=== PATIENT | female | born 1990 | race Caucasian/White ===

== ENCOUNTER 2017-12-08 06:31 | Emergency (ER) | payer MEDICAID ==
--- NOTE | 2017-12-08 07:19 | ER Document Report ---
ED General - General Chief Complaint: Abdominal Pain Stated Complaint: ABOMINAL PAIN Time Seen by Provider: 12/08/17 06:44 Mode of Arrival: Ambulatory Information source: Patient Notes: 27-year-old female presents with complaints of difficulty urinating. Patient notes that she was diagnosed with the UTI 2 weeks ago was placed on Keflex but did not finish her prescription because she had gone on vacation. She notes symptoms have since worsened. Patient denies TRAVEL OUTSIDE OF THE [place] IN LAST 30 DAYS: No - HPI Onset: Last week Onset/Duration: Persistent Quality of pain: Pressure Severity: Mild Pain Level: 1 Associated symptoms: Other Exacerbated by: Other - Difficulty urinating Relieved by: Denies Similar symptoms previously: Yes - Treated for UTI 2 weeks ago Recently seen / treated by doctor: Yes - Related Data Allergies/Adverse Reactions: No Known Allergies Allergy (Verified 12/08/17 06:33) Past Medical History - Social History Smoking Status: Never Smoker Cigarette use (# per day): No Chew tobacco use (# tins/day): No Smoking Education Provided: No Family History: Reviewed & Not Pertinent Review of Systems - Review of Systems Notes: REVIEW OF SYSTEMS: CONSTITUTIONAL : Denies fever, chills, or sweats. Denies recent illness. EENT: Denies eye, ear, throat, or mouth pain or symptoms. Denies nasal or sinus congestion or discharge. Denies throat, tongue, or mouth swelling or difficulty swallowing. CARDIOVASCULAR: Denies chest pain. Denies palpitations or racing or irregular heart beat. Denies ankle edema. RESPIRATORY: Denies cough, cold, or chest congestion. Denies shortness of breath, difficulty breathing, or wheezing. GASTROINTESTINAL: Denies abdominal pain or distention. Denies nausea, vomiting , or diarrhea. Denies blood in vomitus, stools, or per rectum. Denies black, tarry stools. Denies constipation. GENITOURINARY: admits to difficulty urinating, pressure FEMALE GENITOURINARY: Denies vaginal bleeding, heavy or abnormal periods, irregular periods. Denies vaginal discharge or odor. MUSCULOSKELETAL: Denies back or neck pain or stiffness. Denies joint pain or swelling. SKIN: Denies rash, lesions or sores. HEMATOLOGIC : Denies easy bruising or bleeding. LYMPHATIC: Denies swollen, enlarged glands. NEUROLOGICAL: Denies confusion or altered mental status. Denies passing out or loss of consciousness. Denies dizziness or lightheadedness. Denies headache. Denies weakness or paralysis or loss of use of either side. Denies problems with gait or speech. Denies sensory loss, numbness, or tingling. Denies seizures. PSYCHIATRIC: Denies anxiety or stress. Denies depression, suicidal ideation, or homicidal ideation. ALL OTHER SYSTEMS REVIEWED AND NEGATIVE. PHYSICAL EXAMINATION: GENERAL: Well-appearing, well-nourished and in no acute distress. HEAD: Atraumatic, normocephalic. EYES: Pupils equal round and reactive to light, extraocular movements intact, conjunctiva are normal. ENT: Nares patent, oropharynx clear without exudates. Moist mucous membranes. NECK: Normal range of motion, supple without lymphadenopathy LUNGS: Breath sounds clear to auscultation bilaterally and equal. No wheezes rales or rhonchi. HEART: Regular rate and rhythm without murmurs ABDOMEN: Soft, nontender, nondistended abdomen. No guarding, no rebound. No masses appreciated. mild surapubic pressure Female : deferred Musculoskeletal: Normal range of motion, no pitting or edema. No cyanosis. NEUROLOGICAL: Cranial nerves grossly intact. Normal speech, normal gait. Normal sensory, motor exams PSYCH: Normal mood, normal affect. SKIN: Warm, Dry, normal turgor, no rashes or lesions noted. Dictation was performed using [employer] voice recognition software Physical Exam - Vital signs Vitals: Temp Pulse Resp BP Pulse Ox 98.2 F 82 14 114/64 98 12/08/17 06:37 12/08/17 06:37 12/08/17 06:37 12/08/17 06:37 12/08/17 06:37 Course - Re-evaluation Re-evalutation: 12/08/17 09:50 Large amount of hematuria is noted, I did send the patient for CT is I was unsure if there is underlying mass versus kidney stone, no such pathology is noted on the CT imaging, I will treat the patient with antibiotics for presumed infectious process that is not noted because of the blood After performing a Medical Screening Examination, I estimate there is LOW risk for ACUTE APPENDICITIS, BOWEL OBSTRUCTION, ACUTE CHOLECYSTITIS, PERFORATED DIVERTICULITIS, INCARCERATED HERNIA, PANCREATITIS, PELVIC INFLAMMATORY DISEASE, PERFORATED ULCER, ECTOPIC , or TUBO-OVARIAN ABSCESS, thus I consider the discharge disposition reasonable. Also, there is no evidence or peritonitis , sepsis, or toxicity. I have reevaluated this patient multiple times and no significant life threatening changes are noted. The patient and I have discussed the diagnosis and risks, and we agree with discharging home with close follow-up with the understanding that symptoms and presentations can change. We also discussed returning to the Emergency Department immediately if new or worsening symptoms occur. We have discussed the symptoms which are most concerning (e.g., bloody stool, fever, changing or worsening pain, vomiting) that necessitate immediate return. - Vital Signs Vital signs: Temp Pulse Resp BP Pulse Ox 98.2 F 82 14 114/64 98 12/08/17 06:37 12/08/17 06:37 12/08/17 06:37 12/08/17 06:37 12/08/17 06:37 - Laboratory Laboratory results interpreted by me: 12/08/17 07:23 Urine Protein 100 H Urine Blood LARGE H Urine Urobilinogen 2.0 H Urine Ascorbic Acid 40 H - Diagnostic Test Radiology reviewed: Image reviewed - CT renal stone study notes no acute abnormality, Reports reviewed Discharge - Discharge Clinical Impression: UTI (urinary tract infection) Qualifiers: Urinary tract infection type: acute cystitis Hematuria presence: with hematuria Qualified Code(s): N30.01 - Acute cystitis with hematuria Condition: Stable Disposition: HOME, SELF-CARE Instructions: Abdominal Pain ([facility]), Urinary Tract Infection ([facility]) Additional Instructions: Follow up with your physician tomorrow for further care or return to the ED IMMEDIATELY if symptoms worsen or new concerns occur. If you cannot afford to follow up with your primary care physician a list of low cost clinics have been provided at the end of your discharge papers as well. Prescriptions: Sulfamethoxazole/Trimethoprim [Bactrim Ds Tablet] 1 each PO BID #14 tablet
[2017-12-08 08:09] LABS: AMORPHOUS SEDIMENT,URINE TRACE /HPF; APPEARANCE,URINE CLOUDY; BILIRUBIN,URINE NEGATIVE (NEGATIVE); GLUCOSE, URINE NEGATIVE (NEGATIVE); KETONES,URINE NEGATIVE (NEGATIVE); LEUKOCYTE ESTERASE,URINE NEGATIVE (NEGATIVE); NITRITE,URINE NEGATIVE (NEGATIVE); PROTEIN,URINE 100 mg/dL (NEGATIVE); URINE SPECIFIC GRAVITY 1.023
[2017-12-08 08:10] LABS: COLOR,URINE BROWN
--- NOTE | 2017-12-08 09:22 | RADIOLOGY REPORT (SQ) ---
EXAM DESCRIPTION: CT LTD RENAL STONE PROTOCOL ON COMPLETED DATE/TIME: 12/08/2017 8:47 am REASON FOR STUDY: hematuria, pressure urination COMPARISON: None. TECHNIQUE: CT scan of the abdomen and pelvis performed without intravenous or oral contrast. Images reviewed with lung, soft tissue, and bone windows. Reconstructed coronal and sagittal MPR images revi ewed. All images stored on PACS. All CT scanners at this facility use dose modulation, iterative reconstruction, and/or weight based d osing when appropriate to reduce radiation dose to as low as reasonably achievable (ALARA). [facility]: Dose Right [facility]: CareDose [facility]: Dose Right [facility]: Teradose 4D [facility]: [employer] Technologies RADIATION DOSE: CT Rad equipment meets quality standard of care and radiation dose reduction techniq ues were employed. CTDIvol: 11.8 mGy. DLP: 662 mGy-cm.mGy. LIMITATIONS: None. FINDINGS: LOWER CHEST: Mild dependent changes in the lower lobes. NON-CONTRASTED LIVER, SPLEEN, ADRENALS: Evaluation limited by lack of IV contrast. No identified sign ificant masses. PANCREAS: No masses. No peripancreatic inflammatory changes. GALLBLADDER: No identified stones by CT criteria. No inflammatory changes to suggest cholecystitis. RIGHT KIDNEY AND URETER: No solid masses. No significant calcification. No hydronephrosis or hydroure ter. LEFT KIDNEY AND URETER: No solid masses. No significant calcification. No hydronephrosis or hydrouret er. AORTA AND RETROPERITONEUM: No aneurysm. No retroperitoneal masses or adenopathy. BOWEL AND PERITONEAL CAVITY: No obvious masses or inflammatory changes. No free fluid. APPENDIX: Normal. PELVIS, BLADDER, AND ABDOMINAL WALL:Bilateral tubal occlusion devices in uterus. Scattered calcifica tions are consistent with phleboliths. No mass or fluid. Bladder unremarkable. BONES: No significant findings. OTHER: No other significant finding. IMPRESSION: NO SIGNIFICANT OR ACUTE PROCESS IN THE ABDOMEN OR PELVIS. TECHNICAL DOCUMENTATION: JOB ID: [id number] Quality ID # [id number]: Final reports with documentation of one or more dose reduction techniques (e.g., Au tomated exposure control, adjustment of the mA and/or kV according to patient size, use of iterative reconstruction technique) 2010 [employer]- All Rights Reserved Reading location - IP/workstation name: [email or web address]
[2017-12-08 10:05] VITALS: BP 100/60
== END 2017-12-08 10:04 | disposition home or self-care (01) ==
LOC: ER 06:31
DX: N30.01 Acute cystitis with hematuria (principal); T36.1X6A Underdosing of cephalosporins and other beta-lactam antibiotics, initial encounter; Z91.128 Patient's intentional underdosing of medication regimen for other reason; Z91.14 Patient's other noncompliance with medication regimen
CPT/HCPCS: 76380; 81001; 81025; 87086; 87088; 87186; 99284

== ENCOUNTER 2018-01-01 15:13 | Emergency (ER) | payer MEDICAID ==
[2018-01-01 15:22] VITALS: BP 107/64
[2018-01-01] MEDS ORDERED: DIPH/PERTUSS(ACELL)/TETANUS VAC/PF 0.5 ML SYR (>=10YO) IM ONE (15:32)
--- NOTE | 2018-01-01 15:33 | ER Document Report ---
ED Medical Screen (RME) - General Chief Complaint: Foreign Body Stated Complaint: FOOT INJURY Mode of Arrival: Ambulatory Information source: Patient Notes: 27 y.o female presents to the ED after stepping on a needle with her left foot yesterday and finding the needle on the ground with the sharp end broken off. Pt reports that she tried getting the needle out but was unable to get it. Pt reports that her tetanus vaccination is not up to date. She denies any other medical issues. I have greeted and performed a rapid initial assessment of the patient. A comprehensive ED assessment and evaluation of the patient, analysis of test results, and completion of the medical decision making process will be conducted by additional ED providers. PHYSICAL EXAM: General: Alert, appears well. HEENT: Normocephalic. Atraumatic. Neck: Supple. Respiratory: CTAB Abdominal: No distension. Extremities: Moves all four extremities. Foreign body to the distal part of the soul of the LT foot. Some black marking and tenderness to palpation. Neurological: Normal cognition. AAOx4. Normal speech. Psychological: Normal affect. Normal Mood. TRAVEL OUTSIDE OF THE [place] IN LAST 30 DAYS: No - Related Data Allergies/Adverse Reactions: No Known Allergies Allergy (Verified 01/01/18 15:31) Past Medical History Renal/ Medical History: Denies: Hx Peritoneal Dialysis Physical Exam - Vital signs Vitals: Temp Pulse Resp BP Pulse Ox 98.6 F 95 16 107/64 97 01/01/18 15:20 01/01/18 15:20 01/01/18 15:20 01/01/18 15:20 01/01/18 15:20 Course - Vital Signs Vital signs: Temp Pulse Resp BP Pulse Ox 98.6 F 95 16 107/64 97 01/01/18 15:20 01/01/18 15:20 01/01/18 15:20 01/01/18 15:20 01/01/18 15:20 Doctor's Discharge - Discharge Clinical Impression: Foreign body in left foot Condition: Stable Disposition: HOME, SELF-CARE Additional Instructions: Rest, Compression, Elevation Use crutches as directed Keep the skin clean and wash with soap and water Triple antibiotic ointment Tylenol/ibuprofen as needed Epsom salt soaks F/u with your PCP in 3-5 days for a recheck Call orthopedics tomorrow morning and set up an appointment to see Dr. Monzon. He will be seeing you sometime tomorrow in [place]. You may have to call him at his [place] office* Return to the ED with any worsening symptoms and/or development of fever, headache, chest pain, palpitations, syncope, shortness of breath, trouble breathing, abdominal pain, n/v/d, muscle weakness/paralysis, numbness/tingling, swelling, redness, or other worsening symptoms that are concerning to you. Prescriptions: Cephalexin Monohydrate [Keflex 500 mg Capsule] 500 mg PO TID #30 capsule Referrals: NOEMY MONZON DO [ACTIVE STAFF] - Follow up tomorrow Scribe Documentation - Scribe Written by Bakari:: Bakari Peres 01/01/18 1533 acting as scribe for :: Fab
--- NOTE | 2018-01-01 15:59 | ER Document Report ---
HPI - HPI Pain Level: 4 Notes: Patient is a 27-year-old female with no significant past medical history who presents to the ED complaining of possible foreign body to her left plantar foot distally times 1 day. Patient states that she dropped a sewing needle and stepped on it and when she pulled it out she believes that the tip of it broke off inside of her foot. Patient states that she has had some pain since then to pressure in that area. She has not noticed any abscess or purulent discharge nor any red streaks. Denies any drug allergies. Patient's last tetanus was "when I was a kid." Denies any headache, fever, URI, sore throat, chest pain, palpitations, syncope, cough, shortness of breath, wheeze, dyspnea, abdominal pain, nausea/vomiting/diarrhea, urinary retention, dysuria, hematuria , numbness/tingling, muscle paralysis/weakness, or rash. - ROS Systems Reviewed and Negative: Yes All other systems reviewed and negative Past Medical History - General Information source: Patient - Social History Smoking Status: Current Every Day Smoker Chew tobacco use (# tins/day): No Frequency of alcohol use: Social Drug Abuse: None Family History: Reviewed & Not Pertinent Patient has suicidal ideation: No Patient has homicidal ideation: No Renal/ Medical History: Denies: Hx Peritoneal Dialysis Vertical Provider Document - CONSTITUTIONAL Agree With Documented VS: Yes Notes: PHYSICAL EXAMINATION: GENERAL: Well-appearing, well-nourished and in no acute distress. LUNGS: Breath sounds clear to auscultation bilaterally and equal. No wheezes rales or rhonchi. HEART: Regular rate and rhythm without murmurs, rubs, gallops. Musculoskeletal: Lt foot/ankle: + dark pinpoint area noted to where the puncture occurred. + tenderness to palp directly over that site. No erythema, streaks, fluctuance, abscess, or purulence. FROM to passive/active. Strength 5+ /5. N/V intact distal. No bony tenderness of the foot. Achilles intact. Extremities: No cyanosis, clubbing, or edema b/l. Peripheral pulses 2+. Capillary refill less than 3 seconds. NEUROLOGICAL: Normal speech, limping gait. Normal sensory, motor exams PSYCH: Normal mood, normal affect. SKIN: Warm, Dry, normal turgor, no rashes or lesions noted. - INFECTION CONTROL TRAVEL OUTSIDE OF THE [place] IN LAST 30 DAYS: No Course - Re-evaluation Re-evalutation: 01/01/18 16:[address] Sanon after reviewing the XR I measured the foreign body to be approx 13.7mm and appears somewhat deep. Consulted General Surgeon, Dr. Saenz. He is not comfortable with feet and to consult Ortho. Dr. Sanon also spoke with the Surgeon. I spoke with Dr. Monzon who will see the patient tomorrow in [place], she is to call to schedule an appointment in the morning. Tetanus and antibiotics with crutches is what he recommends at this time. Patient is an afebrile, well-hydrated, 27-year-old female who presents to the ED with a foreign body to her left foot. Vitals are acceptable without any significant tachycardia, tachypnea, or hypoxia. PE is otherwise unremarkable for any neurovascular compromise, obvious tendon/ligament rupture, obvious fracture/dislocation, septic joint. There is currently no signs of infection at this time. I am unable to palpate the foreign body as it is fairly deep. Dr. Monzon has agreed to see this patient tomorrow. I will place her on Keflex. Conservative measures otherwise for symptoms. Tetanus is updated today. Return to the ED with any worsening/concerning symptoms otherwise as reviewed in discharge. Patient is in agreement. - Vital Signs Vital signs: Temp Pulse Resp BP Pulse Ox 98.6 F 95 16 107/64 97 01/01/18 15:20 01/01/18 15:20 01/01/18 15:20 01/01/18 15:20 01/01/18 15:20 Discharge - Discharge Clinical Impression: Foreign body in left foot Qualifiers: Encounter type: initial encounter Qualified Code(s): S90.852A - Superficial foreign body, left foot, initial encounter Condition: Stable Disposition: HOME, SELF-CARE Additional Instructions: Rest, Compression, Elevation Use crutches as directed Keep the skin clean and wash with soap and water Triple antibiotic ointment Tylenol/ibuprofen as needed Epsom salt soaks F/u with your PCP in 3-5 days for a recheck Call orthopedics tomorrow morning and set up an appointment to see Dr. Monzon. He will be seeing you sometime tomorrow in [place]. You may have to call him at his [place] office* Return to the ED with any worsening symptoms and/or development of fever, headache, chest pain, palpitations, syncope, shortness of breath, trouble breathing, abdominal pain, n/v/d, muscle weakness/paralysis, numbness/tingling, swelling, redness, or other worsening symptoms that are concerning to you. Prescriptions: Cephalexin Monohydrate [Keflex 500 mg Capsule] 500 mg PO TID #30 capsule Referrals: NOEMY MONZON DO [ACTIVE STAFF] - Follow up tomorrow
--- NOTE | 2018-01-01 16:12 | RADIOLOGY REPORT (SQ) ---
EXAM DESCRIPTION: FOOT LEFT COMPLETE COMPLETED DATE/TIME: 01/01/2018 3:55 pm REASON FOR STUDY: eval for foreign body (needle) distal foot COMPARISON: None. NUMBER OF VIEWS: Three views. TECHNIQUE: AP, lateral and oblique radiographic images acquired of the left foot. LIMITATIONS: None. FINDINGS: MINERALIZATION: Normal. BONES: No acute fracture or dislocation. No worrisome bone lesions. JOINTS: No effusions. SOFT TISSUES: There is a portion of pin or sewing needle in the soft tissues of the foot near the 3rd metatarsophalangeal joint. This does not involve the bone. OTHER: No other significant finding. IMPRESSION: Metallic foreign body in the soft tissues. TECHNICAL DOCUMENTATION: JOB ID: [id number] [employer]- All Rights Reserved Reading location - IP/workstation name: [email or web address]
[2018-01-01] MEDS ORDERED: CEPHALEXIN 500 MG CAPSULE PO ONE (16:19)
[2018-01-01] MEDS ORDERED: HYDROCODONE/ACETAMINOPHEN 5-325 MG (6 TAB/ER DISP) PO PRN (16:22)
== END 2018-01-01 16:35 | disposition home or self-care (01) ==
LOC: ER 15:13
DX: S90.852A Superficial foreign body, left foot, initial encounter (principal); W27.3XXA Contact with needle (sewing), initial encounter; F17.200 Nicotine dependence, unspecified, uncomplicated
CPT/HCPCS: 90471; 90715; 99283

== ENCOUNTER 2018-01-03 09:37 | Day surgery (SDC) | payer MEDICAID ==
[~2018-01-03 09:37] MED LIST: CEFAZOLIN 2 GM/D5W RTU 2 GM/50 ML RTUPB IV PRN; FENTANYL CITRATE INJ/PF 100 MCG/2 ML AMPUL ONE; LIDOCAINE 2% INJ-PF (20 MG/ML) 10 ML AMPUL ONE
[2018-01-03] MEDS ORDERED: ALBUTEROL SULFATE 0.083% NEB 2.5 MG/3 ML AMPUL NEB ONE (10:13)
[2018-01-03] MEDS ORDERED: MIDAZOLAM 2 MG/2 ML INJ ONE (10:20)
[2018-01-03] MEDS ORDERED: PROPOFOL INJ 200 MG/20 ML VIAL IV ONE (10:20)
[2018-01-03] MEDS ORDERED: FENTANYL CITRATE INJ/PF 100 MCG/2 ML AMPUL IV PRN ×3 (11:59)
[2018-01-03] MEDS ORDERED: PROMETHAZINE HCL INJ 25 MG/1 ML VIAL IV PRN ×2 (11:59)
[2018-01-03] MEDS ORDERED: DIPHENHYDRAMINE HCL 50 MG/ML VIAL IV PRN (11:59)
[2018-01-03] MEDS ORDERED: OXYCODONE-ACETAMINOPHEN 5-325 MG TABLET PO PRN ×2 (11:59)
[2018-01-03] MEDS ORDERED: MORPHINE SULFATE 10 MG/ML INJ IV PRN (11:59)
[2018-01-03] MEDS ORDERED: ONDANSETRON HCL INJ/PF 4 MG/2 ML SDV IV PRN (11:59)
[2018-01-03] MEDS ORDERED: MEPERIDINE HCL/PF INJ 25 MG/1 ML DISP.SYRIN IV PRN (11:59)
[2018-01-03] MEDS ORDERED: KETAMINE HCL INJ 500 MG/10 ML VIAL ONE (12:04)
[2018-01-03] MEDS ORDERED: BUPIVACAINE HCL 0.5%-EPI 1:200000 INJ/PF 30 ML VIAL ONE (12:06)
--- NOTE | 2018-01-03 12:21 | Operative Report ---
Operative Report DATE OF SURGERY: 01/03/18 PREOPERATIVE DIAGNOSIS: foreign body left foot OPERATION: Removal of foreign body left foot SURGEON: JAC CONNER ANESTHESIA: LMAC TISSUE REMOVED OR ALTERED: Retrieve needle/foreign body to pathology ESTIMATED BLOOD LOSS: Normal PROCEDURE: With the patient supine on the operating table the left lower extremities prepped and draped in sterile fashion. The skin overlying the puncture site was infiltrated with a combination of Marcaine, Xylocaine, and epinephrine. A 15 blade is used to make a longitudinal opening. Under fluoroscopic guidance a hemostat is then used to retrieve the underlying needle which occurs uneventfully. The bleeding is controlled with direct pressure. A sterile compressive dressing was applied. The patient's return to the PACU_
[2018-01-03] MEDS ORDERED: ONDANSETRON 4 MG TAB.RAPDIS SL PRN (12:44)
[2018-01-03] MEDS ORDERED: HYDROCODONE/ACETAMINOPHEN 5-325 MG TABLET PO PRN (12:44)
[2018-01-03 14:17] VITALS: BP 95/62
--- NOTE | 2018-01-03 14:41 | RADIOLOGY REPORT (SQ) ---
EXAM DESCRIPTION: FOOT LEFT 2 VIEWS; NO CHG FLUORO COMPLETED DATE/TIME: 01/03/2018 2:14 pm REASON FOR STUDY: FOREIGN BODY S99.822A OTHER SPECIFIED INJURIES OF LEFT FOOT, INITIAL ENCO COMPARISON: Foot films 01/01/2018 FLUOROSCOPY TIME: 10 seconds 2 digital C-arm images saved to PACS. TECHNIQUE: Intra-operative images acquired during surgical procedure to evaluate progress. NUMBER OF IMAGES: 2 digital C-arm images LIMITATIONS: None. FINDINGS: 2 C-arm images are submitted. 1 image over the left toes demonstrates that the radiopaque foreign body has been removed. The 2nd digital image shows a pair of forceps holding the radiopaque foreign body. IMPRESSION: Intra procedural imaging and fluoro. COMMENT: Quality ID [id number]: Final reports for procedures using fluoroscopy that document radiation exp osure indices, or exposure time and number of fluorographic images (if radiation exposure indices are not available) Please consult full operative report of the attending physician for description of the procedure. TECHNICAL DOCUMENTATION: JOB ID: [id number] [employer]- All Rights Reserved Reading location - IP/workstation name: [email or web address] BEDS AT THE [facility]
--- NOTE | 2018-01-03 14:41 | RADIOLOGY REPORT (SQ) ---
EXAM DESCRIPTION: FOOT LEFT 2 VIEWS; NO CHG FLUORO COMPLETED DATE/TIME: 01/03/2018 2:14 pm REASON FOR STUDY: FOREIGN BODY S99.822A OTHER SPECIFIED INJURIES OF LEFT FOOT, INITIAL ENCO COMPARISON: Foot films 01/01/2018 FLUOROSCOPY TIME: 10 seconds 2 digital C-arm images saved to PACS. TECHNIQUE: Intra-operative images acquired during surgical procedure to evaluate progress. NUMBER OF IMAGES: 2 digital C-arm images LIMITATIONS: None. FINDINGS: 2 C-arm images are submitted. 1 image over the left toes demonstrates that the radiopaque foreign body has been removed. The 2nd digital image shows a pair of forceps holding the radiopaque foreign body. IMPRESSION: Intra procedural imaging and fluoro. COMMENT: Quality ID [id number]: Final reports for procedures using fluoroscopy that document radiation exp osure indices, or exposure time and number of fluorographic images (if radiation exposure indices are not available) Please consult full operative report of the attending physician for description of the procedure. TECHNICAL DOCUMENTATION: JOB ID: [id number] [employer]- All Rights Reserved Reading location - IP/workstation name: [email or web address]
== END 2018-01-03 14:26 | disposition home or self-care (01) ==
LOC: OROUT 09:37
PROVIDERS: ATTEND Orthopaedic Surgery
DX: S90.852A Superficial foreign body, left foot, initial encounter (principal); W22.8XXA Striking against or struck by other objects, initial encounter; Z68.31 Body mass index [BMI] 31.0-31.9, adult; Y92.69 Other specified industrial and construction area as the place of occurrence of the external cause; E66.3 Overweight; F17.210 Nicotine dependence, cigarettes, uncomplicated
CPT/HCPCS: 81025; 73620; 94640; 28192; J2250; J3490 ×3; J3010; J2704; J0690; 00400

== ENCOUNTER 2018-06-15 05:58 | Inpatient (IN) | payer MEDICAID ==
[2018-06-15] MEDS ORDERED: ALBUTEROL SULFATE 0.083% NEB 2.5 MG/3 ML AMPUL NEB ONE (06:33)
[2018-06-15] MEDS ORDERED: IPRATROPIUM/ALBUTEROL 0.5-2.5 MG/3 ML AMPUL NEB ONE (06:33)
[2018-06-15] MEDS ORDERED: METHYLPREDNISOLONE INJ 125 MG/2 ML SDV IV ONE (06:33)
[2018-06-15] MEDS ORDERED: NORMAL SALINE 1000 ML 1,000 ML IV ONE (06:39)
--- NOTE | 2018-06-15 06:39 | ER Document Report ---
ED General - General Chief Complaint: Breathing Difficulty Stated Complaint: COUGHING UP BLOOD Time Seen by Provider: 06/15/18 06:27 TRAVEL OUTSIDE OF THE [place] IN LAST 30 DAYS: No - HPI Notes: Patient is a 27-year-old female that presents to the emergency department for chief complaint of hemoptysis. Patient reports heavy cough and congestion for the last week. Today she started coughing up bright red blood. She states it is streaky and not large clots. She states she has been seen in the emergency room 2 times in the last 4 days because of her cough. she was started on azithromycin and has had the first 2 days of that medication. She denies any home albuterol treatments. She is a daily tobacco user but has not smoked in the last 5 days. She denies recent surgery, travel, estrogen use, or hospitalizations. She denies family history of DVT/PE. She denies any known TB exposure. Patient reports a substernal chest pain with associated palpitations. The pain is worse with deep inspiration, ambulation, and coughing. She has not taken any over-the- counter medicine for her pain. She denies any relieving factors to the pain. Past Medical History: Negative Past Surgical History: Uterine ablation Social History: Daily tobacco. Occasional alcohol. Denies drug use. Family History: Reviewed and noncontributory for presenting illness Allergies: Reviewed, see documented allergy list. REVIEW OF SYSTEMS: CONSTITUTIONAL : No fever No chills No diaphoresis No recent illness EENT: No vision changes No congestion No sore throat CARDIOVASCULAR: chest pain palpitations RESPIRATORY: shortness of breath cough No difficulty breathing GASTROINTESTINAL: No abdominal pain No nausea No vomiting No diarrhea GENITOURINARY: No dysuria No hematuria No difficulty urinating MUSCULOSKELETAL: No back pain No leg pain No arm pain SKIN: No rashes No lesions LYMPHATIC: No swollen, enlarged glands. NEUROLOGICAL: No lightheadedness No headache No weakness No paresthesias PSYCHIATRIC: No anxiety No depression PHYSICAL EXAMINATION: Vital signs reviewed, nursing noted reviewed. GENERAL: Well-appearing, well-nourished and in no acute distress. HEAD: Atraumatic, normocephalic. EYES: Eyes appear normal, extraocular movements intact, sclera anicteric, conjunctiva are normal. ENT: nares patent, oropharynx clear without exudates. Moist mucous membranes. NECK: Normal range of motion, supple without lymphadenopathy LUNGS: Bilateral wheezing and bibasilar rhonchi. No accessory muscle use or tachypnea. No respiratory distress HEART: Tachycardic and regular rhythm without murmurs ABDOMEN: Soft, nontender, normoactive bowel sounds. No rebound, guarding, or rigidity. No masses appreciated. EXTREMITIES: Nontender, good range of motion, no pitting or edema. NEUROLOGICAL: No focal neurological deficits. Moves all extremities spontaneously Motor and sensory grossly intact on exam. PSYCH: Normal mood, normal affect. SKIN: Warm, Dry, normal turgor, no rashes or lesions noted on exposed skin - Related Data Allergies/Adverse Reactions: No Known Allergies Allergy (Verified 01/01/18 15:31) Past Medical History - Social History Smoking Status: Current Every Day Smoker Family History: Reviewed & Not Pertinent - Past Medical History Cardiac Medical History: Denies: Hx Coronary Artery Disease, Hx Heart Attack, Hx Hypertension Pulmonary Medical History: Reports: Hx Pneumonia Denies: Hx Asthma, Hx Bronchitis, Hx COPD Neurological Medical History: Denies: Hx Cerebrovascular Accident, Hx Seizures Renal/ Medical History: Denies: Hx Peritoneal Dialysis Musculoskeletal Medical History: Denies Hx Arthritis - Immunizations Hx Diphtheria, Pertussis, Tetanus Vaccination: Yes Physical Exam - Vital signs Vitals: Temp Pulse Resp BP Pulse Ox 98.1 F 105 H 19 97/50 L 95 06/15/18 06:04 06/15/18 06:04 06/15/18 06:04 06/15/18 06:04 06/15/18 06:04 Course - Re-evaluation Re-evalutation: 06/15/18 06:38 Vitals reviewed. Nursing notes reviewed. Patient is in no acute respiratory distress. She will be given albuterol, DuoNeb, and Solu-Medrol for symptomatic management. 06/15/18 08:25 Patient reevaluated, she is still not in any respiratory distress. Her oxygen has now dropped to 88% on room air and she will be placed on 2 L nasal cannula for her hypoxia. Lab work shows no acute anemia or signs of infection. She has no electrolyte derangement. 06/15/18 08:[address] scan was resulted as groundglass opacification concerning for possible mycobacterial infection. Patient is complaining of hemoptysis and will be moved to reverse isolation until tuberculosis infection can be further interrogated. 06/15/18 08:[address] Junior, pulmonology,who does not recommend antibiotic treatment at this time. He recommends AFB and sputum cultures prior to treatment, these were ordered. Case was discussed with Dr. Murphy who is accepted admission. Laboratory 06/15/18 06/15/18 06/15/18 06:55 06:55 06:55 WBC 8.9 RBC 4.02 Hgb 12.9 Hct 35.1 L MCV 87 MCH 32.1 MCHC 36.8 H RDW 13.5 Plt Count 200 Seg Neutrophils % 57.3 Lymphocytes % 32.9 Monocytes % 8.8 Eosinophils % 0.7 Basophils % 0.3 Absolute Neutrophils 5.1 Absolute Lymphocytes 2.9 Absolute Monocytes 0.8 Absolute Eosinophils 0.1 Absolute Basophils 0.0 Sodium 142.5 Potassium 4.2 Chloride 107 Carbon Dioxide 26 Anion Gap 10 BUN 13 Creatinine 0.52 Est GFR ( Amer) > 60 Est GFR (Non-Af Amer) > 60 Glucose 111 H Calcium 9.4 Troponin I < 0.012 Chest/Abdomen CTA 06/15/18 06:32 IMPRESSION: 1. Limited study. No central pulmonary embolus detected. 2. Mild adenopathy and patchy right lung infiltrates with differential as described above. - Vital Signs Vital signs: Temp Pulse Resp BP Pulse Ox 98.1 F 105 H 19 97/50 L 95 06/15/18 06:04 06/15/18 06:04 06/15/18 06:04 06/15/18 06:04 06/15/18 06:04 - Laboratory Result Diagrams: 06/15/18 06:55 06/15/18 06:55 Laboratory results interpreted by me: 06/15/18 06/15/18 06:55 06:55 Hct 35.1 L MCHC 36.8 H Glucose 111 H - EKG Interpretation by Me Additional EKG results interpreted by me: 06/15/18 08:23 Interpreted by myself [id number]: Sinus tachycardia, rate 101, normal axis, no ectopy, borderline prolonged QT, QTC 483 Discharge - Discharge Clinical Impression: Hypoxia, Bronchiolitis, Cough Condition: Stable Disposition: ADMITTED INPATIENT Admitting Provider: Hospitalist Unit Admitted: Telemetry - Reverse Isolation room
[2018-06-15 07:11] LABS: ABSOLUTE EOSINOPHILS # (AUTO) 0.1 10^3/uL (0.0-0.6); ABSOLUTE LYMPHOCYTES (AUTO) 2.9 10^3/uL (0.5-4.7); ABSOLUTE MONOCYTES (AUTO) 0.8 10^3/uL (0.1-1.4); ABSOLUTE NEUT (AUTO) 5.1 10^3/uL (1.7-8.2); BASOPHILS % (AUTO) 0.3 % (0-2); EOSINOPHILS % (AUTO) 0.7 % (0-6); HEMATOCRIT 35.1 % (36.0-47.0); HEMOGLOBIN 12.9 g/dL (12.0-15.5); LYMPHOCYTES % (AUTO) 32.9 % (13-45); MEAN CORPUSCULAR HEMOGLOBIN 32.1 pg (27.0-33.4); MEAN CORPUSCULAR HGB CONC 36.8 g/dL (32.0-36.0); MEAN CORPUSCULAR VOLUME 87 fl (80-97); MONOCYTES % (AUTO) 8.8 % (3-13); PLATELET COUNT 200 10^3/uL (150-450); RED BLOOD COUNT 4.02 10^6/uL (3.72-5.28); RED CELL DISTRIBUTION WIDTH 13.5 % (11.5-14.0); SEGMENTED NEUTROPHILS % (AUTO) 57.3 % (42-78); TOTAL CELLS COUNTED % (AUTO) 100 %; WHITE BLOOD COUNT 8.9 10^3/uL (4.0-10.5)
[2018-06-15 07:22] LABS: ANION GAP 10 (5-19); BLOOD UREA NITROGEN 13 mg/dL (7-20); CALCIUM 9.4 mg/dL (8.4-10.2); CARBON DIOXIDE 26 mmol/L (22-30); CHLORIDE 107 mmol/L (98-107); GLUCOSE 111 mg/dL (75-110); POTASSIUM 4.2 mmol/L (3.6-5.0); SODIUM 142.5 mmol/L (137-145)
--- NOTE | 2018-06-15 08:39 | RADIOLOGY REPORT (SQ) ---
EXAM DESCRIPTION: CTA CHEST COMPLETED DATE/TIME: 06/15/2018 8:18 am REASON FOR STUDY: hemoptysis COMPARISON: None. TECHNIQUE: CT scan of the chest performed using helical scanning technique with dynamic intravenous contrast injection. Images reviewed with lung, soft tissue and bone windows. Reconstructed coronal and sagittal MPR images reviewed. Additional 3 dimensional post-processing performed to develop Maximal Intensity Projection images (PA P). All images stored on PACS. All CT scanners at this facility use dose modulation, iterative reconstruction, and/or weight based d osing when appropriate to reduce radiation dose to as low as reasonably achievable (ALARA). [facility]: Dose Right [facility]: CareDose [facility]: Dose Right [facility]: Teradose 4D [facility]: [employer] CONTRAST TYPE AND DOSE: contrast/concentration: Isovue 350.00 mg/ml; Total Contrast Delivered: 145.0 ml; Total Saline Delivered: 120.0 ml RENAL FUNCTION: GFR > 60. RADIATION DOSE: CT Rad equipment meets quality standard of care and radiation dose reduction techniq ues were employed. CTDIvol: 3.3 - 19.8 mGy. DLP: 1227 mGy-cm. . LIMITATIONS: Initial injection showed poor opacification of the pulmonary arteries. After confirmin g normal renal function, I authorized reinjection with contrast. Unfortunately, contrast bolus in th e pulmonary arteries is still limited. Central pulmonary arteries are assessable. Peripheral branch es are not well seen. FINDINGS: LUNGS AND PLEURA: Minimal patchy reticular and ground-glass opacities in the right upper l obe and right lower lobe. Consider infective bronchiolitis. Such etiologies may include viral, donovan al and mycobacterial infection. AORTA AND GREAT VESSELS: Limited assessment. No gross aneurysm or dissection. HEART: No pericardial effusion. No significant coronary artery calcifications. PULMONARY ARTERIES: Central pulmonary arteries are clear of thrombus. HILAR AND MEDIASTINAL STRUCTURES: Mild mediastinal and hilar adenopathy with nodes measuring up to 1. 4 cm in short axis. Persistent thymic tissue in anterior mediastinum. HARDWARE: None in the chest. UPPER ABDOMEN: No significant findings. Limited exam. THYROID AND OTHER SOFT TISSUES: No masses. No adenopathy. BONES: No acute or significant finding. 3D MIPS: Confirm above findings. OTHER: No other significant finding. IMPRESSION: 1. Limited study. No central pulmonary embolus detected. 2. Mild adenopathy and patchy right lung infiltrates with differential as described above. COMMENT: Quality ID # [id number]: Final reports with documentation of one or more dose reduction techniques (e.g., Automated exposure control, adjustment of the mA and/or kV according to patient size, use of iterative reconstruction technique) TECHNICAL DOCUMENTATION: JOB ID: [id number] [employer]- All Rights Reserved Reading location - IP/workstation name: [email or web address]
[2018-06-15] MEDS ORDERED: LEVALBUTEROL HCL NEB 1.25 MG/3 ML AMPUL NEB PRN (09:42)
[2018-06-15] MEDS ORDERED: ONDANSETRON HCL INJ/PF 4 MG/2 ML SDV IV PRN (09:42)
[2018-06-15] MEDS ORDERED: ACETAMINOPHEN 325 MG TABLET PO PRN (09:42)
--- NOTE | 2018-06-15 10:13 | PDOC H&P ---
History of Present Illness Admission Date/PCP: 06/15/18 09:29 Patient complains of: cough and hemoptysis History of Present Illness: GERARDO FREITAS is a 27 year old female with no travel history, history of bipolar disorder, anxiety, depression, came to the emergency room with complaints of cough and chest congestion for 1 week. Due to the patient she went to the ER 3 times last time Saturday over hospital where she was given 83 Z-He and was discharged and patient is continued to have problems decided to come to the emergency room here. Since yesterday she is complaining of coughing up bright colored blood. 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 She is given the history that 2 of her kids are sick prior to the car problems first. She said might have borderline pneumonia secondary to kid has a bronchitis. She is given the history of shortness of breath associated with chest pain and coughing. Initially she is coughing green colored sputum. Since yesterday was blood stained sputum complains of headaches no dizziness complains of nausea denies any vomiting diarrhea constipation. She never had this problem. In the emergency room sputum AFB was sent. Call was placed to Dr. Junior the utility appraiser's recommendation is to not to start antibiotics until the cultures are negative. Medical consult was called for admission. CT of the chest was done PE is ruled out. But the radiologist impression is infective bronchiolitis most likely viral, possible fungal and TB etiology. Past Medical History Cardiac Medical History: Denies: Coronary Artery Disease, Myocardial Infarction, Hypertension Pulmonary Medical History: Reports: Pneumonia Denies: Asthma, Bronchitis, Chronic Obstructive Pulmonary Disease (COPD) Neurological Medical History: Denies: Seizures Musculoskeltal Medical History: Denies: Arthritis Psychiatric Medical History: Reports: Bipolar Disorder, Depression, General Anxiety Disorder Hematology: Denies: Anemia Past Surgical History Past Surgical History: Reports: Tubal Ligation, Other - Tubes in the ears, adenoids removal. Uterus ambulation. Social History Smoking Status: Current Every Day Smoker Family History Family History: Reviewed & Not Pertinent Parental Family History Reviewed: Yes Children Family History Reviewed: Yes Sibling(s) Family History Reviewed.: Yes Medication/Allergy Home Medications: Cephalexin Monohydrate [Keflex 500 mg Capsule] 500 mg PO TID #30 capsule Hydrocodone/Acetaminophen [Hydrocodon-Acetaminophen 5-325] 1 each PO 01/02/18 Allergies/Adverse Reactions: No Known Allergies Allergy (Verified 01/01/18 15:31) Review of Systems Constitutional: PRESENT: headache(s) Eyes: PRESENT: visual disturbances Ears: ABSENT: hearing changes Cardiovascular: PRESENT: chest pain Respiratory: PRESENT: cough, sputum, other - Hemoptysis Gastrointestinal: PRESENT: nausea Musculoskeletal: PRESENT: back pain Neurological: ABSENT: abnormal gait, abnormal speech, confusion, dizziness, focal weakness, syncope Psychiatric: ABSENT: anxiety, depression, homidical ideation, suicidal ideation Physical Exam Vital Signs: Temp Pulse Resp BP Pulse Ox 98.1 F 105 H 20 112/70 94 06/15/18 06:04 06/15/18 06:04 06/15/18 08:28 06/15/18 08:28 06/15/18 08:28 General appearance: PRESENT: mild distress Head exam: PRESENT: atraumatic Eye exam: PRESENT: PERRLA Neck exam: ABSENT: carotid bruit, JVD, lymphadenopathy, thyromegaly Respiratory exam: PRESENT: tachypnea, wheezes, other - Bilateral extensive wheezing. Cardiovascular exam: PRESENT: tachycardia GI/Abdominal exam: PRESENT: normal bowel sounds, soft. ABSENT: distended, guarding, mass, organolmegaly, rebound, tenderness Extremities exam: PRESENT: full ROM. ABSENT: calf tenderness, clubbing, pedal edema Neurological exam: PRESENT: alert, awake, oriented to person, oriented to place , oriented to time, oriented to situation, CN II-XII grossly intact. ABSENT: motor sensory deficit Psychiatric exam: PRESENT: appropriate affect, normal mood. ABSENT: homicidal ideation, suicidal ideation Results Impressions: Chest/Abdomen CTA 06/15/18 06:32 IMPRESSION: 1. Limited study. No central pulmonary embolus detected. 2. Mild adenopathy and patchy right lung infiltrates with differential as described above. Assessment & Plan - Diagnosis (1) Bronchiolitis Is this a current diagnosis for this admission?: Yes Plan: 06/15/2018-patient is going to be admitted into the telemetry. As inpatient. Patient is going to be in isolation until we ruled out TB. Requested for AFB x3. PPD was placed in the ER. Consult was requested. Started on albuterol nebulizations Xopenex nebulizations. Placed on oxygen 2 L nasal cannula. Sputum cultures blood cultures were sent. Started on Tamiflu. Requested for influenza screening. Patient is going to be in reverse isolation until the TB is ruled out. (2) Hypoxia Is this a current diagnosis for this admission?: Yes Plan: 06/14/2018 pulse ox reading in the ER on room air is 88%. She was placed on 2 L nasal cannula for hypoxia. (3) Hemoptysis Is this a current diagnosis for this admission?: Yes Plan: 06/15/2018 hemoptysis may be secondary to bronchiolitis. To rule out TB. Sputum cultures were sent. Hemoglobin is 12.9 stable. (4) Smoker Is this a current diagnosis for this admission?: Yes Plan: 06/15/2018 patient is a chronic smoker smoking for 12 years. She smokes 1 pack/ day. I am going to put her on nicotine patch. (5) Bipolar 1 disorder, depressed Is this a current diagnosis for this admission?: Yes Plan: 06/15/2018-patient is given the history of the bipolar disorder. According to her she was started on Latuda 2 weeks ago but the family thinks she is getting the side effects of Latuda coughing and body aches. Be going to hold off her medications for now. - Time Time Spent: 30 to 50 Minutes Critical Time spent with patient: Less than 15 minutes Smoking Cessation Education: over 10 minutes Medications reviewed and adjusted accordingly: Yes Anticipated discharge: Home
[2018-06-15 10:54] LABS: ARTERIAL BLOOD BASE EXCESS 1.7 mmol/L; ARTERIAL BLOOD H2CO3 1.24 mmol/L (1.05-1.35); ARTERIAL BLOOD HCO3 26.2 mmol/L (20-24); ARTERIAL BLOOD O2 SATURATION 82.3 % (94-98); ARTERIAL BLOOD PCO2 41.1 mmHg (35-45); ARTERIAL BLOOD PH 7.42 (7.35-7.45); ARTERIAL BLOOD PO2 45.3 mmHg (80-100); ARTERIAL BLOOD TOTAL CO2 27.5 mmol/L (21-25)
[2018-06-15 10:55] LABS: ARTERIAL BLOOD FIO2 2L
[2018-06-15] MEDS ORDERED: GUAIFENESIN 600 MG TABLET.SA PO ONE (11:00)
[2018-06-15 11:05] LABS: APPEARANCE,URINE CLEAR; BILIRUBIN,URINE NEGATIVE (NEGATIVE); COLOR,URINE YELLOW; GLUCOSE, URINE NEGATIVE (NEGATIVE); KETONES,URINE 20 mg/dL (NEGATIVE); LEUKOCYTE ESTERASE,URINE NEGATIVE (NEGATIVE); NITRITE,URINE NEGATIVE (NEGATIVE); PROTEIN,URINE NEGATIVE (NEGATIVE); URINE SPECIFIC GRAVITY > 1.060; UROBILINOGEN,URINE NEGATIVE mg/dL (<2.0)
[2018-06-15 11:17] LABS: URINE AMPHETAMINES SCREEN NEGATIVE; URINE BARBITURATES SCREEN NEGATIVE; URINE BENZODIAZEPINES SCREEN NEGATIVE; URINE COCAINE SCREEN NEGATIVE; URINE MARIJUANA (THC) SCREEN UNCONFIRMED POSITIVE; URINE METHADONE SCREEN NEGATIVE; URINE PHENCYCLIDINE SCREEN NEGATIVE
[2018-06-15 11:17] LABS: A TYPE INFLUENZA AG NEGATIVE (NEGATIVE); B INFLUENZA AG NEGATIVE (NEGATIVE)
[2018-06-15] MEDS: ENOXAPARIN SODIUM INJ 40 MG/0.4 ML DISP.SYRIN SUBCUT SCH (11:27)
[2018-06-15] MEDS: NORMAL SALINE 1000 ML 1,000 ML IV PRN (11:27)
[2018-06-15] MEDS: OSELTAMIVIR PHOSPHATE 75 MG CAPSULE PO SCH ×2 (11:27→17:36)
[2018-06-15] MEDS: LORAZEPAM INJ 2 MG/1 ML VIAL IV PRN ×2 (12:16→19:57)
[2018-06-15] MEDS: DOCUSATE SODIUM 100 MG CAPSULE PO SCH (17:35)
[2018-06-15] MEDS: HYDROCODONE/ACETAMINOPHEN 5-325 MG TABLET PO PRN (17:39)
[2018-06-15] MEDS: NICOTINE 21 MG/24 HR PATCH.TD24 TD PRN (19:03)
[2018-06-15] MEDS: IPRATROPIUM/ALBUTEROL 0.5-2.5 MG/3 ML AMPUL NEB PRN (19:17)
--- NOTE | 2018-06-15 19:41 | PDOC CONSULTATION ---
Consultation Consult Date: 06/15/18 Attending physician:: JONATHON LEWIS Consult reason:: hemoptysis History of Present Illness Admission Date/PCP: 06/15/18 09:29 History of Present Illness: GERARDO FREITAS is a 27 year old female,27-year-old female presented to the [facility] she has been sick for the last 6 days and has 2 possible sick. She denies nausea vomiting diarrhea fever but admits to some chills she denies chest pain or edema. Baseline she denies shortness of breath or dyspnea on exertion her PPD was negative dates unknown. She denies any history of chronic lung disease as a child or adolescent. She admits to exposure to large amounts of passive smoke as a child as well as an adult. She has smoked a pack a day for 12 years vows not to smoke any any longer she has no significant occupational history to exposure to potential respiratory toxins. She has 1 cat and 1 dog no recent travel. She denies angina-like chest pain sleeps on 3 pillows rare PND rare nocturnal cough and no edema.. She admits to snoring restless sleep nocturia 2 x 2-3 times per night unrestful sleep and excessive daytime somnolence. Past Medical History Cardiac Medical History: Denies: Coronary Artery Disease, Myocardial Infarction, Hypertension Pulmonary Medical History: Reports: Pneumonia Denies: Asthma, Bronchitis, Chronic Obstructive Pulmonary Disease (COPD) Neurological Medical History: Denies: Multiple Sclerosis, Seizures Renal/ Medical History: Denies: Nephrolithiasis Malignancy Medical History: Reports: None GI Medical History: Reports: Crohn's Disease, Ulcerative Colitis Denies: Cirrhosis Musculoskeltal Medical History: Denies: Arthritis Skin Medical History: Reports: None Psychiatric Medical History: Reports: Bipolar Disorder, Depression, General Anxiety Disorder, Tobacco Dependency Hematology: Denies: Anemia Infectious Medical History: Denies: Hepatitis B, Hepatitis C Past Surgical History Past Surgical History: Reports: Tubal Ligation, Other - Tubes in the ears, adenoids removal. Uterus ambulation. Social History Information Source: Patient, Relative, [facility] Records Lives with: Family Smoking Status: Current Every Day Smoker Cigarettes Packs Per Day: 1 Number of Years Smokin Passive smoke exposure as: Both Hx Prescription Drug Abuse: No Do you have pets?: Yes Have you had any respiratory illnesses as a child?: No Have you been exposed to any sick contacts recently?: Yes Have you had any recent respiratory illnesses?: Yes Have you travelled outside of [place] in the past 12 months?: No Family History Family History: Hypertension, Malignancy Parental Family History Reviewed: Yes Children Family History Reviewed: Yes Sibling(s) Family History Reviewed.: Yes Medication/Allergy Home Medications: Divalproex Sodium [Depakote ER] 500 mg PO QHS 06/15/18 Allergies/Adverse Reactions: No Known Allergies Allergy (Verified 06/15/18 11:12) Review of Systems Constitutional: PRESENT: chills, fatigue, fever(s) Eyes: ABSENT: visual disturbances Ears: ABSENT: hearing changes Nose, Mouth, and Throat: ABSENT: headache(s), mouth pain Cardiovascular: PRESENT: dyspnea on exertion, orthropnea. ABSENT: palpitations Respiratory: PRESENT: cough, dyspnea, hemoptysis Gastrointestinal: ABSENT: abdominal pain, bloating, coffee ground emesis, diarrhea, heartburn, hematemesis, hematochezia, melena Genitourinary: ABSENT: dysuria, hematuria Musculoskeletal: ABSENT: deformity, joint swelling Integumentary: ABSENT: pruritus, rash Neurological: ABSENT: abnormal gait, abnormal movements, abnormal speech, focal weakness, frequent falls, lack of coordination, memory loss Psychiatric: ABSENT: hallucinations, homidical ideation, suicidal ideation Endocrine: ABSENT: cold intolerance, heat intolerance, polydipsia, polyuria Hematologic/Lymphatic: ABSENT: lymphadenopathy Allergic/Immunologic: ABSENT: seasonal rhinorrhea Physical Exam Vital Signs: Temp Pulse Resp BP Pulse Ox 98.1 F 105 H 20 111/78 94 06/15/18 06:04 06/15/18 06:04 06/15/18 10:01 06/15/18 10:01 06/15/18 10:01 General appearance: PRESENT: no acute distress, cooperative, disheveled, obese Head exam: PRESENT: atraumatic, normocephalic Eye exam: PRESENT: conjunctiva pale, EOMI. ABSENT: nystagmus, scleral icterus Mouth exam: PRESENT: dry mucosa, neck supple, tongue midline Neck exam: ABSENT: carotid bruit, JVD, lymphadenopathy, thyromegaly, tracheal deviation, tracheostomy Respiratory exam: PRESENT: crackles, decreased breath sounds, rhonchi, wheezes. ABSENT: retraction, stridor Cardiovascular exam: PRESENT: RRR, +S1, +S2 Pulses: PRESENT: normal radial pulses GI/Abdominal exam: PRESENT: soft. ABSENT: tenderness Extremities exam: ABSENT: calf tenderness, joint swelling, pedal edema Musculoskeletal exam: PRESENT: ambulatory. ABSENT: deformity, dislocation Neurological exam: PRESENT: alert, awake Psychiatric exam: PRESENT: appropriate affect Skin exam: PRESENT: dry, warm Results Laboratory Results: 06/15/18 06/15/18 10:22 10:34 Carbonic Acid 1.24 HCO3/H2CO3 Ratio 21:1 ABG pH 7.42 ABG pCO2 41.1 ABG pO2 45.3 L ABG HCO3 26.2 H ABG O2 Saturation 82.3 L ABG Base Excess 1.7 FiO2 2L Urine Color YELLOW Urine Appearance CLEAR Urine pH 5.0 Ur Specific [place] > 1.060 Urine Protein NEGATIVE Urine Glucose (UA) NEGATIVE Urine Ketones 20 H Urine Blood SMALL H Urine Nitrite NEGATIVE Ur Leukocyte Esterase NEGATIVE Urine WBC (Auto) 2 Urine RBC (Auto) 6 06/15/18 10:17 Sputum Nocardia Susceptibility - Final Not Reportable 06/15/18 10:17 Sputum Nocardia Susceptibility - Final Not Reportable 06/15/18 10:17 Sputum Nocardia Susceptibility - Final Not Reportable 06/15/18 10:17 Sputum Nocardia Susceptibility - Final Not Reportable 06/15/18 10:17 Sputum Nocardia Susceptibility - Final Not Reportable 06/15/18 10:17 Sputum Nocardia Susceptibility - Final Not Reportable 06/15/18 10:17 Sputum Microbiology Comment - Final Not Reportable 06/15/18 10:45 CK-MB (CK-2) 0.63 Impressions: Chest/Abdomen CTA 06/15/18 06:32 IMPRESSION: 1. Limited study. No central pulmonary embolus detected. 2. Mild adenopathy and patchy right lung infiltrates with differential as described above. Assessment & Plan - Diagnosis (1) Bipolar 1 disorder, depressed Is this a current diagnosis for this admission?: Yes Plan: Continue current therapy (2) Hemoptysis Is this a current diagnosis for this admission?: Yes Plan: agree with caution putting patient in respiratory isolation nonetheless she is at very low risk for having tuberculosis she has pre-existing illness for 5 days of cough which resulted in coughing when she finally coughed up some blood she has 2 sick individuals at home we will check serial sputum's every morning for 3 days for AFB and treat her as if she has a community-acquired pneumonia (3) Smoker Is this a current diagnosis for this admission?: Yes Plan: Transdermal nicotine as you have done
[2018-06-15] MEDS: ZOLPIDEM TARTRATE 5 MG TABLET PO PRN (21:42)
[2018-06-15] MEDS: DIVALPROEX SODIUM 500 MG TAB.SR.24H PO SCH (21:42)
[2018-06-15] MEDS: FAMOTIDINE INJ/PF 20 MG/2 ML SDV IV SCH (21:43)
[2018-06-16] MEDS: LORAZEPAM INJ 2 MG/1 ML VIAL IV PRN ×3 (02:48→22:13)
[2018-06-16 05:58] LABS: ABSOLUTE LYMPHOCYTES (AUTO) 3.7 10^3/uL (0.5-4.7); ABSOLUTE MONOCYTES (AUTO) 0.8 10^3/uL (0.1-1.4); ABSOLUTE NEUT (AUTO) 5.4 10^3/uL (1.7-8.2); BASOPHILS % (AUTO) 0.3 % (0-2); EOSINOPHILS % (AUTO) 0.2 % (0-6); HEMATOCRIT 32.1 % (36.0-47.0); HEMOGLOBIN 11.5 g/dL (12.0-15.5); LYMPHOCYTES % (AUTO) 37.2 % (13-45); MEAN CORPUSCULAR HGB CONC 35.9 g/dL (32.0-36.0); MEAN CORPUSCULAR VOLUME 89 fl (80-97); MONOCYTES % (AUTO) 8.2 % (3-13); PLATELET COUNT 179 10^3/uL (150-450); RED BLOOD COUNT 3.61 10^6/uL (3.72-5.28); RED CELL DISTRIBUTION WIDTH 13.1 % (11.5-14.0); SEGMENTED NEUTROPHILS % (AUTO) 54.1 % (42-78); TOTAL CELLS COUNTED % (AUTO) 100 %
[2018-06-16 06:18] LABS: ANION GAP 9 (5-19); BLOOD UREA NITROGEN 10 mg/dL (7-20); CARBON DIOXIDE 24 mmol/L (22-30); CHLORIDE 108 mmol/L (98-107); CHOLESTEROL 131.83 mg/dL (0-200); GLUCOSE 101 mg/dL (75-110); POTASSIUM 3.5 mmol/L (3.6-5.0); SODIUM 141.2 mmol/L (137-145); TRIGLYCERIDES 56 mg/dL (<150)
[2018-06-16 06:29] LABS: DIRECT LDL 99 mg/dL (<100)
[2018-06-16] MEDS: HYDROCODONE/ACETAMINOPHEN 5-325 MG TABLET PO PRN (07:59)
--- NOTE | 2018-06-16 08:16 | PDOC PROGRESS REPORT ---
Subjective Progress Note for:: 06/16/18 Subjective:: 27-year-old female admitted for viral pneumonitis/questionable TB. No complaints except for anxiety. Comfortably in the bed. Afebrile. Vital signs today temperature is 98.1 blood pressure is 124/73. Pulmonary saw the patient and appreciate their input. I am going to follow Dr. Junior's recommendations. Reason For Visit: HYPOXIA BRONCHIOLITIS Physical Exam Vital Signs: Temp Pulse Resp BP Pulse Ox 98.1 F 85 16 124/73 96 06/15/18 23:26 06/16/18 07:00 06/15/18 23:26 06/15/18 23:26 06/16/18 03:47 Pulse Oximeter Continuous Start: 06/15/18 19: 25 Freq: RTQ4 Status: Active Document 06/16/18 03:47 [facility] (Rec: 06/16/18 03:48 [facility] [id number]) Pulse Oximetry Assessment Oxygen Saturation (92-100) 96 Oxygen Flow Rate (L/min) 2 Oxygen Delivery Method Nasal Cannula Fraction of Inspired Oxygen (FIO2) 28 Equipment Usage Equipment in Use Continuous SpO2 Machine # 11 Intake & Output 06/15/18 06/16/18 06/17/18 06:59 06:59 06:59 Intake Total 237 Balance 237 Weight 97.6 kg General appearance: PRESENT: no acute distress Head exam: PRESENT: atraumatic Eye exam: PRESENT: PERRLA Mouth exam: PRESENT: moist Neck exam: ABSENT: carotid bruit, JVD, lymphadenopathy, thyromegaly Respiratory exam: PRESENT: wheezes. ABSENT: rales, rhonchi Cardiovascular exam: PRESENT: RRR. ABSENT: diastolic murmur, rubs, systolic murmur GI/Abdominal exam: PRESENT: normal bowel sounds, soft. ABSENT: distended, guarding, mass, organolmegaly, rebound, tenderness Neurological exam: PRESENT: alert, awake, oriented to person, oriented to place , oriented to time, oriented to situation, CN II-XII grossly intact. ABSENT: motor sensory deficit Psychiatric exam: PRESENT: appropriate affect, normal mood. ABSENT: homicidal ideation, suicidal ideation Results Laboratory Results: 06/16/18 04:43 06/16/18 04:43 06/15/18 06/15/18 06/16/18 10:22 10:34 04:43 WBC 10.0 RBC 3.61 L Hgb 11.5 L Hct 32.1 L MCV 89 MCH 32.0 MCHC 35.9 RDW 13.1 Plt Count 179 Seg Neutrophils % 54.1 Lymphocytes % 37.2 Monocytes % 8.2 Eosinophils % 0.2 Basophils % 0.3 Absolute Neutrophils 5.4 Absolute Lymphocytes 3.7 Absolute Monocytes 0.8 Absolute Eosinophils 0.0 Absolute Basophils 0.0 Carbonic Acid 1.24 HCO3/H2CO3 Ratio 21:1 ABG pH 7.42 ABG pCO2 41.1 ABG pO2 45.3 L ABG HCO3 26.2 H ABG O2 Saturation 82.3 L ABG Base Excess 1.7 FiO2 2L Sodium Potassium Chloride Carbon Dioxide Anion Gap BUN Creatinine Est GFR ( Amer) Est GFR (Non-Af Amer) Glucose Calcium Magnesium Triglycerides Cholesterol LDL Cholesterol Direct VLDL Cholesterol HDL Cholesterol TSH Urine Color YELLOW Urine Appearance CLEAR Urine pH 5.0 Ur Specific [place] > 1.060 Urine Protein NEGATIVE Urine Glucose (UA) NEGATIVE Urine Ketones 20 H Urine Blood SMALL H Urine Nitrite NEGATIVE Ur Leukocyte Esterase NEGATIVE Urine WBC (Auto) 2 Urine RBC (Auto) 6 06/16/18 06/16/18 04:43 04:43 WBC RBC Hgb Hct MCV MCH MCHC RDW Plt Count Seg Neutrophils % Lymphocytes % Monocytes % Eosinophils % Basophils % Absolute Neutrophils Absolute Lymphocytes Absolute Monocytes Absolute Eosinophils Absolute Basophils Carbonic Acid HCO3/H2CO3 Ratio ABG pH ABG pCO2 ABG pO2 ABG HCO3 ABG O2 Saturation ABG Base Excess FiO2 Sodium 141.2 Potassium 3.5 L Chloride 108 H Carbon Dioxide 24 Anion Gap 9 BUN 10 Creatinine 0.51 L Est GFR ( Amer) > 60 Est GFR (Non-Af Amer) > 60 Glucose 101 Calcium 9.0 Magnesium 1.8 Triglycerides 56 Cholesterol 131.83 LDL Cholesterol Direct 99 VLDL Cholesterol 11.0 HDL Cholesterol 33 L TSH 3.56 Urine Color Urine Appearance Urine pH Ur Specific [place] Urine Protein Urine Glucose (UA) Urine Ketones Urine Blood Urine Nitrite Ur Leukocyte Esterase Urine WBC (Auto) Urine RBC (Auto) 06/16/18 04:40 Sputum Microbiology Comment - Final Not Reportable 06/16/18 04:40 Sputum Nocardia Susceptibility - Final Not Reportable 06/16/18 04:40 Sputum Nocardia Susceptibility - Final PRODUCT ANALYST 06/16/18 04:40 Sputum Nocardia Susceptibility - Final Not Reportable 06/16/18 04:40 Sputum Nocardia Susceptibility - Final Not Reportable 06/16/18 04:40 Sputum Nocardia Susceptibility - Final Not Reportable 06/16/18 04:40 Sputum Nocardia Susceptibility - Final Not Reportable 06/16/18 04:40 Sputum Nocardia Susceptibility - Final Not Reportable 06/16/18 04:40 Sputum Nocardia Susceptibility - Final Not Reportable 06/16/18 04:40 Sputum Nocardia Susceptibility - Final Not Reportable 06/16/18 04:40 Sputum Nocardia Susceptibility - Final Not Reportable 06/16/18 04:40 Sputum Microbiology Comment - Final Not Reportable 06/15/18 10:17 Sputum Nocardia Susceptibility - Final Not Reportable 06/15/18 10:17 Sputum Nocardia Susceptibility - Final Not Reportable 06/15/18 10:17 Sputum Nocardia Susceptibility - Final Not Reportable 06/15/18 10:17 Sputum Nocardia Susceptibility - Final Not Reportable 06/15/18 10:17 Sputum Nocardia Susceptibility - Final Not Reportable 06/15/18 10:17 Sputum Nocardia Susceptibility - Final Not Reportable 06/15/18 10:17 Sputum Microbiology Comment - Final Not Reportable 06/15/18 06/15/18 06/15/18 10:45 15:50 21:50 CK-MB (CK-2) 0.63 0.59 0.68 Impressions: Chest/Abdomen CTA 06/15/18 06:32 IMPRESSION: 1. Limited study. No central pulmonary embolus detected. 2. Mild adenopathy and patchy right lung infiltrates with differential as described above. Assessment & Plan - Diagnosis (1) Bronchiolitis Is this a current diagnosis for this admission?: Yes Plan: 06/15/2018-patient is going to be admitted into the telemetry. As inpatient. Patient is going to be in isolation until we ruled out TB. Requested for AFB x3. PPD was placed in the ER. Consult was requested. Started on albuterol nebulizations Xopenex nebulizations. Placed on oxygen 2 L nasal cannula. Sputum cultures blood cultures were sent. Started on Tamiflu. Requested for influenza screening. Patient is going to be in reverse isolation until the TB is ruled out. 06/16/2018-plan for today is to start her on IV Rocephin 1 g daily. QuantiFERON test was requested yesterday. AFBs are pending. Blood cultures are pending. Influenza A and B-. Pulse ox is 95% on room air. Going to follow her on regular basis. (2) Hypoxia Is this a current diagnosis for this admission?: Yes Plan: 06/15/2018 pulse ox reading in the ER on room air is 88%. She was placed on 2 L nasal cannula for hypoxia. 06/16/2018-pulse ox on 2 L today is 95%. At the time of admission the ER pulse ox is 88% on room air. No episodes of hypoxia while in the floor.. We will continue the present management. (3) Hemoptysis Is this a current diagnosis for this admission?: Yes Plan: 06/15/2018 hemoptysis may be secondary to bronchiolitis. To rule out TB. Sputum cultures were sent. Hemoglobin is 12.9 stable. 06/16/2018 patient given the history of hemoptysis in the ER. If these are pending to rule out TB. TB unlikely in my opinion. (4) Smoker Is this a current diagnosis for this admission?: Yes Plan: 06/15/2018 patient is a chronic smoker smoking for 12 years. She smokes 1 pack/ day. I am going to put her on nicotine patch. 06/16/2018 patient is a chronic smoker patient was placed on nicotine patch. (5) Bipolar 1 disorder, depressed Is this a current diagnosis for this admission?: Yes Plan: 06/15/2018-patient is given the history of the bipolar disorder. According to her she was started on Latuda 2 weeks ago but the family thinks she is getting the side effects of Latuda coughing and body aches. Be going to hold off her medications for now. 07/17/2017 patient has history of bipolar disorder and anxiety she is getting Ativan 1 mg IV every 6 as needed for anxiety. - Time Time Spent with patient: Less than 15 minutes Smoking Cessation Education: 3 to 10 minutes Medications reviewed and adjusted accordingly: Yes Anticipated discharge: Home
[2018-06-16] MEDS: IPRATROPIUM/ALBUTEROL 0.5-2.5 MG/3 ML AMPUL NEB PRN ×2 (08:22→20:11)
[2018-06-16] MEDS ORDERED: CEFTRIAXONE INJ 1000 MG VIAL IV SCH (10:00)
[2018-06-16] MEDS: ENOXAPARIN SODIUM INJ 40 MG/0.4 ML DISP.SYRIN SUBCUT SCH (10:31)
[2018-06-16] MEDS: FAMOTIDINE INJ/PF 20 MG/2 ML SDV IV SCH ×2 (10:31→22:14)
[2018-06-16] MEDS: DOCUSATE SODIUM 100 MG CAPSULE PO SCH ×2 (10:31→17:33)
[2018-06-16] MEDS: CEFTRIAXONE SODIUM 1,000 MG in DEXTROSE 5%-WATER 50 ML IV SCH (10:32)
[2018-06-16] MEDS: OSELTAMIVIR PHOSPHATE 75 MG CAPSULE PO SCH ×2 (10:34→17:40)
[2018-06-16] MEDS ORDERED: TUBERCULIN,PURIF.PROT.DERIV. 5 TU/0.1 ML TEST 1 ML VIAL ID ONE (14:00)
[2018-06-16] MEDS: DIVALPROEX SODIUM 500 MG TAB.SR.24H PO SCH (22:13)
[2018-06-16] MEDS: ZOLPIDEM TARTRATE 5 MG TABLET PO PRN (22:14)
[2018-06-17] MEDS: HYDROCODONE/ACETAMINOPHEN 5-325 MG TABLET PO PRN ×2 (00:33→17:18)
[2018-06-17 05:22] LABS: ABSOLUTE EOSINOPHILS # (AUTO) 0.1 10^3/uL (0.0-0.6); ABSOLUTE LYMPHOCYTES (AUTO) 3.5 10^3/uL (0.5-4.7); ABSOLUTE MONOCYTES (AUTO) 0.5 10^3/uL (0.1-1.4); ABSOLUTE NEUT (AUTO) 2.8 10^3/uL (1.7-8.2); BASOPHILS % (AUTO) 0.4 % (0-2); EOSINOPHILS % (AUTO) 1.3 % (0-6); HEMATOCRIT 30.8 % (36.0-47.0); HEMOGLOBIN 11.1 g/dL (12.0-15.5); LYMPHOCYTES % (AUTO) 51.5 % (13-45); MEAN CORPUSCULAR HEMOGLOBIN 31.9 pg (27.0-33.4); MEAN CORPUSCULAR VOLUME 89 fl (80-97); MONOCYTES % (AUTO) 6.7 % (3-13); PLATELET COUNT 190 10^3/uL (150-450); RED BLOOD COUNT 3.49 10^6/uL (3.72-5.28); RED CELL DISTRIBUTION WIDTH 13.1 % (11.5-14.0); SEGMENTED NEUTROPHILS % (AUTO) 40.1 % (42-78); TOTAL CELLS COUNTED % (AUTO) 100 %; WHITE BLOOD COUNT 6.9 10^3/uL (4.0-10.5)
[2018-06-17 05:51] LABS: ANION GAP 9 (5-19); BLOOD UREA NITROGEN 9 mg/dL (7-20); CARBON DIOXIDE 25 mmol/L (22-30); CHLORIDE 108 mmol/L (98-107); GLUCOSE 110 mg/dL (75-110); POTASSIUM 3.9 mmol/L (3.6-5.0); SODIUM 141.9 mmol/L (137-145)
[2018-06-17] MEDS: LORAZEPAM INJ 2 MG/1 ML VIAL IV PRN ×2 (07:45→19:25)
[2018-06-17] MEDS: CEFTRIAXONE SODIUM 1,000 MG in DEXTROSE 5%-WATER 50 ML IV SCH (09:42)
[2018-06-17] MEDS: OSELTAMIVIR PHOSPHATE 75 MG CAPSULE PO SCH ×2 (09:42→17:13)
[2018-06-17] MEDS: NORMAL SALINE 1000 ML 1,000 ML IV PRN (09:43)
[2018-06-17] MEDS: DOCUSATE SODIUM 100 MG CAPSULE PO SCH ×2 (09:43→17:13)
[2018-06-17] MEDS: FAMOTIDINE INJ/PF 20 MG/2 ML SDV IV SCH ×2 (09:43→21:32)
[2018-06-17] MEDS: ENOXAPARIN SODIUM INJ 40 MG/0.4 ML DISP.SYRIN SUBCUT SCH (09:43)
--- NOTE | 2018-06-17 13:55 | PDOC PROGRESS REPORT ---
Subjective Progress Note for:: 06/17/18 Subjective:: This is a 27-year-old female who initially presented with cough and hemoptysis and was admitted for viral pneumonitis vs questionable TB. TB workup pending. Upon encounter this morning, patient. She was asleep and had to be prompted repeatedly by this provider before she woke up. No other acute event overnight but patient did say that she had some yellowish sputum early this morning with blood streaks on it. She denies chest pain or shortness of breath. Reason For Visit: HYPOXIA BRONCHIOLITIS Physical Exam Vital Signs: Temp Pulse Resp BP Pulse Ox 97.8 F 83 18 113/75 93 06/17/18 12:22 06/17/18 12:22 06/17/18 12:22 06/17/18 12:22 06/17/18 12:22 Pulse Oximeter Continuous Start: 06/15/18 19:25 Freq: RTQ4 Status: Active Document 06/17/18 10:37 [facility] [place] (Rec: 06/17/18 10:41 [facility] [id number]) Pulse Oximetry Assessment Oxygen Saturation (92-100) 95 Oxygen Flow Rate (L/min) 2 Oxygen Delivery Method Nasal Cannula Fraction of Inspired Oxygen (FIO2) 28 Equipment Usage Equipment in Use Continuous Pulse Oximeter 24 Hour Charge Charge Now Continuous SpO2 Machine # N 11 Intake & Output 06/16/18 06/17/18 06/18/18 06:59 06:59 06:59 Intake Total 237 2027 50 Balance 237 2027 50 Weight 215 lb 2.738 oz 219 lb 12.814 oz General appearance: PRESENT: no acute distress, well-developed, well-nourished Head exam: PRESENT: atraumatic, normocephalic Eye exam: PRESENT: conjunctiva pink, EOMI, PERRLA. ABSENT: scleral icterus Ear exam: PRESENT: normal external ear exam Neck exam: ABSENT: carotid bruit, JVD, lymphadenopathy, thyromegaly Respiratory exam: PRESENT: rhonchi - Occasional rhonchi in the right uppermid lung field. ABSENT: rales, wheezes Cardiovascular exam: PRESENT: RRR. ABSENT: diastolic murmur, rubs, systolic murmur Pulses: PRESENT: normal dorsalis pedis pul GI/Abdominal exam: PRESENT: normal bowel sounds, soft. ABSENT: distended, guarding, mass, organolmegaly, rebound, tenderness Rectal exam: PRESENT: deferred Neurological exam: PRESENT: oriented to person, oriented to place, oriented to time, other Results Laboratory Results: 06/17/18 04:33 06/17/18 04:33 06/17/18 06/17/18 04:33 04:33 WBC 6.9 RBC 3.49 L Hgb 11.1 L Hct 30.8 L MCV 89 MCH 31.9 MCHC 36.0 RDW 13.1 Plt Count 190 Seg Neutrophils % 40.1 L Lymphocytes % 51.5 H Monocytes % 6.7 Eosinophils % 1.3 Basophils % 0.4 Absolute Neutrophils 2.8 Absolute Lymphocytes 3.5 Absolute Monocytes 0.5 Absolute Eosinophils 0.1 Absolute Basophils 0.0 Sodium 141.9 Potassium 3.9 Chloride 108 H Carbon Dioxide 25 Anion Gap 9 BUN 9 Creatinine 0.56 Est GFR ( Amer) > 60 Est GFR (Non-Af Amer) > 60 Glucose 110 Calcium 9.0 Magnesium 1.8 06/15/18 06/15/18 06/15/18 10:45 15:50 21:50 CK-MB (CK-2) 0.63 0.59 0.68 Impressions: Chest/Abdomen CTA 06/15/18 06:32 IMPRESSION: 1. Limited study. No central pulmonary embolus detected. 2. Mild adenopathy and patchy right lung infiltrates with differential as described above. Assessment & Plan - Diagnosis (1) Acute respiratory failure with hypoxia Is this a current diagnosis for this admission?: Yes Plan: Secondary to pneumonia. Ruling out TB. Currently saturating on 3 L of nasal cannula. Patient did initially came in with hypoxia in the high 80s. (2) Hemoptysis Is this a current diagnosis for this admission?: Yes Plan: Improved. Secondary to pneumonia, ruling out pulmonary tuberculosis. Patient says she had blood streaked sputum this morning but not as significant as when she came in. Chest CT did show infiltrates on the right upper lobe and right lower lobe. We will continue to monitor for recurrence of hemoptysis. Continue Rocephin. Sput um AFB still pending. On airborne precautions. (3) Bipolar 1 disorder, depressed Is this a current diagnosis for this admission?: Yes Plan: Continue Depakote. Reportedly was started on Latuda but patient was unable to tolerate medication hence this was discontinued. Patient was apparently started on IV Ativan every 8 as needed for anxiety. Will reduce Ativan to every 12 as needed. - Time Time Spent with patient: 15-24 minutes
[2018-06-17] MEDS: NICOTINE 21 MG/24 HR PATCH.TD24 TD PRN (19:28)
[2018-06-17] MEDS: DIVALPROEX SODIUM 500 MG TAB.SR.24H PO SCH (21:32)
[2018-06-18 06:44] LABS: HEMATOCRIT 33.6 % (36.0-47.0); HEMOGLOBIN 11.9 g/dL (12.0-15.5); MEAN CORPUSCULAR HEMOGLOBIN 31.6 pg (27.0-33.4); MEAN CORPUSCULAR HGB CONC 35.5 g/dL (32.0-36.0); MEAN CORPUSCULAR VOLUME 89 fl (80-97); PLATELET COUNT 223 10^3/uL (150-450); RED BLOOD COUNT 3.77 10^6/uL (3.72-5.28); WHITE BLOOD COUNT 5.5 10^3/uL (4.0-10.5)
[2018-06-18 07:06] LABS: ANION GAP 7 (5-19); BLOOD UREA NITROGEN 10 mg/dL (7-20); CALCIUM 9.2 mg/dL (8.4-10.2); CARBON DIOXIDE 30 mmol/L (22-30); CHLORIDE 106 mmol/L (98-107); GLUCOSE 93 mg/dL (75-110); POTASSIUM 4.1 mmol/L (3.6-5.0); SODIUM 142.7 mmol/L (137-145)
[2018-06-18 07:51] LABS: ABSOLUTE LYMPHOCYTES# (MANUAL) 3.2 10^3/uL (0.5-4.7); ABSOLUTE MONOCYTES # (MANUAL) 0.2 10^3/uL (0.1-1.4); ABSOLUTE NEUTROPHILS# (MANUAL) 1.9 10^3/uL (1.7-8.2); BASOPHILS % (MANUAL) 0 % (0-2); EOSINOPHILS % (MANUAL) 3 % (0-6); LYMPHOCYTES % (MANUAL) 58 % (13-45); MONOCYTES % (MANUAL) 3 % (3-13); SEGMENTED NEUTROPHILS % (MAN) 35 % (42-78); TOTAL CELLS COUNTED 100
[2018-06-18 07:52] LABS: PLATELET COMMENT ADEQUATE; RBC MORPHOLOGY COMMENT NORMO-CYTIC/CHROMIC
[2018-06-18] MEDS ORDERED: PHARMACY COMMUNICATION ORDER MC SCH (10:00)
[2018-06-18] MEDS: ENOXAPARIN SODIUM INJ 40 MG/0.4 ML DISP.SYRIN SUBCUT SCH (11:10)
[2018-06-18] MEDS: DOCUSATE SODIUM 100 MG CAPSULE PO SCH ×2 (11:10→18:02)
[2018-06-18] MEDS: OSELTAMIVIR PHOSPHATE 75 MG CAPSULE PO SCH ×2 (11:11→18:04)
[2018-06-18] MEDS: FAMOTIDINE INJ/PF 20 MG/2 ML SDV IV SCH ×2 (11:11→21:08)
[2018-06-18] MEDS: CEFTRIAXONE SODIUM 1,000 MG in DEXTROSE 5%-WATER 50 ML IV SCH (11:25)
[2018-06-18] MEDS: LORAZEPAM INJ 2 MG/1 ML VIAL IV PRN (11:26)
[2018-06-18] MEDS: IPRATROPIUM/ALBUTEROL 0.5-2.5 MG/3 ML AMPUL NEB PRN (11:40)
--- NOTE | 2018-06-18 16:37 | PDOC PROGRESS REPORT ---
Subjective Progress Note for:: 06/18/18 Subjective:: This is a 27-year-old female who initially presented with cough and hemoptysis and was admitted for viral pneumonitis vs questionable TB. Upon encounter this morning, patient was more awake and appears comfortable. She said that she blew her nose and did have a few bright red blood streaks on nasal discharge x2. She said she had productive cough but sputum today was [id number]. She denies chest pain. She says she does not feel short of breath at rest but after walking from the bathroom door to the bed, she did complain of exertional dyspnea and says that she does not feel that she is at her baseline. Reason For Visit: HYPOXIA BRONCHIOLITIS Physical Exam Vital Signs: Temp Pulse Resp BP Pulse Ox 98.4 F 88 20 99/74 L 94 06/18/18 12:00 06/18/18 14:00 06/18/18 12:00 06/18/18 12:00 06/18/18 12:00 Pulse Oximeter Continuous Start: 06/15/18 19:25 Freq: RTQ4 Status: Active Protocol: Document 06/18/18 11:40 HCR (Rec: 06/18/18 11:45 HCR [id number]) Pulse Oximetry Assessment Oxygen Saturation (92-100) 93 Oxygen Flow Rate (L/min) 2 Oxygen Delivery Method Nasal Cannula Equipment Usage Equipment in Use Continuous SpO2 Machine # 11 Intake & Output 06/17/18 06/18/18 06/19/18 06:59 06:59 06:59 Intake Total 2026 970 1000 Output Total 1 Balance 2026 969 1000 Weight 219 lb 12.814 oz 216 lb 4.375 oz General appearance: PRESENT: no acute distress, well-developed, well-nourished Head exam: PRESENT: atraumatic, normocephalic Eye exam: PRESENT: conjunctiva pink, EOMI, PERRLA. ABSENT: scleral icterus Ear exam: PRESENT: normal external ear exam Mouth exam: PRESENT: moist, tongue midline Neck exam: ABSENT: carotid bruit, JVD, lymphadenopathy, thyromegaly Respiratory exam: PRESENT: crackles - Crackles in the bases. ABSENT: accessory muscle use, wheezes Cardiovascular exam: PRESENT: RRR. ABSENT: diastolic murmur, rubs, systolic murmur Pulses: PRESENT: normal dorsalis pedis pul GI/Abdominal exam: PRESENT: normal bowel sounds, soft. ABSENT: distended, guarding, mass, organolmegaly, rebound, tenderness Rectal exam: PRESENT: deferred Neurological exam: PRESENT: alert, awake, oriented to person, oriented to place, oriented to time, oriented to situation, CN II-XII grossly intact. ABSENT: stacie r sensory deficit Results Laboratory Results: 06/18/18 04:13 06/18/18 04:13 06/18/18 06/18/18 04:13 04:13 WBC 5.5 RBC 3.77 Hgb 11.9 L Hct 33.6 L MCV 89 MCH 31.6 MCHC 35.5 RDW 13.0 Plt Count 223 Seg Neutrophils % Not Reportable Lymphocytes % Not Reportable Monocytes % Not Reportable Eosinophils % Not Reportable Basophils % Not Reportable Absolute Neutrophils Not Reportable Absolute Lymphocytes Not Reportable Absolute Monocytes Not Reportable Absolute Eosinophils Not Reportable Absolute Basophils Not Reportable Sodium 142.7 Potassium 4.1 Chloride 106 Carbon Dioxide 30 Anion Gap 7 BUN 10 Creatinine 0.57 Est GFR ( Amer) > 60 Est GFR (Non-Af Amer) > 60 Glucose 93 Calcium 9.2 Magnesium 1.9 06/16/18 04:40 Sputum AFB Smear Concentration - Final 06/16/18 04:40 Sputum Acid Fast Bacilli Smear - Final 06/15/18 10:17 Sputum AFB Smear Concentration - Final 06/15/18 10:17 Sputum Acid Fast Bacilli Smear - Final 06/15/18 09:08 Sputum Gram Stain - Final 06/15/18 09:08 Sputum Sputum Culture - Final NORMAL VENUS 06/15/18 06/15/18 06/15/18 06:55 10:45 15:50 CK-MB (CK-2) 0.63 0.59 Troponin I < 0.012 06/15/18 21:50 CK-MB (CK-2) 0.68 Troponin I Impressions: Chest/Abdomen CTA 06/15/18 06:32 IMPRESSION: 1. Limited study. No central pulmonary embolus detected. 2. Mild adenopathy and patchy right lung infiltrates with differential as described above. Assessment & Plan - Diagnosis (1) Acute respiratory failure with hypoxia Is this a current diagnosis for this admission?: Yes Plan: Secondary to pneumonia. Ruling out TB. Currently saturating on 3 L of nasal cannula. Patient did initially came in with hypoxia in the high 80s. (2) Hemoptysis Is this a current diagnosis for this admission?: Yes Plan: Improved. Secondary to pneumonia, ruling out pulmonary tuberculosis. Patient says she had blood streaked nasal discharge after she blew her nose x2. She said she had productive cough this morning but there was no blood streaks on the sputum today. Chest CT did show infiltrates on the right upper lobe and right lower lobe. We will continue to monitor for recurrence of hemoptysis. Continue Rocephin. First sputum AFB is negative. On airborne precautions. (3) Bipolar 1 disorder, depressed Is this a current diagnosis for this admission?: Yes Plan: Continue Depakote. Reportedly was started on Latuda but patient was unable to tolerate medication hence this was discontinued. - Time Time Spent with patient: 15-24 minutes
[2018-06-18] MEDS: HYDROCODONE/ACETAMINOPHEN 5-325 MG TABLET PO PRN (19:52)
[2018-06-18] MEDS: NICOTINE 21 MG/24 HR PATCH.TD24 TD PRN (20:27)
[2018-06-18] MEDS: ZOLPIDEM TARTRATE 5 MG TABLET PO PRN (20:31)
[2018-06-18] MEDS: DIVALPROEX SODIUM 500 MG TAB.SR.24H PO SCH (21:07)
[2018-06-18] MEDS: NORMAL SALINE 1000 ML 1,000 ML IV PRN (21:11)
[2018-06-19] MEDS: ENOXAPARIN SODIUM INJ 40 MG/0.4 ML DISP.SYRIN SUBCUT SCH (10:26)
[2018-06-19] MEDS: DOCUSATE SODIUM 100 MG CAPSULE PO SCH (10:26)
[2018-06-19] MEDS: CEFTRIAXONE SODIUM 1,000 MG in DEXTROSE 5%-WATER 50 ML IV SCH (10:26)
[2018-06-19] MEDS: FAMOTIDINE INJ/PF 20 MG/2 ML SDV IV SCH (10:26)
[2018-06-19] MEDS: OSELTAMIVIR PHOSPHATE 75 MG CAPSULE PO SCH (10:27)
[2018-06-19] MEDS: IPRATROPIUM/ALBUTEROL 0.5-2.5 MG/3 ML AMPUL NEB PRN (10:48)
[2018-06-19 12:19] VITALS: BP 126/71
[2018-06-19] MEDS ORDERED: LORAZEPAM 0.5 MG TABLET PO ONE (12:45)
--- NOTE | 2018-06-19 21:33 | PDOC DISCHARGE SUMMARY ---
General - Admit/Disc Date/PCP Admission Date/Primary Care Provider: 06/15/18 09:29 Discharge Date: 06/19/18 - Discharge Diagnosis (1) Acute respiratory failure with hypoxia Is this a current diagnosis for this admission?: Yes (2) Hemoptysis Is this a current diagnosis for this admission?: Yes (3) Bipolar 1 disorder, depressed Is this a current diagnosis for this admission?: Yes - Additional Information Prescriptions: Levofloxacin [Levaquin 750 mg Tablet] 750 mg PO DAILY 5 Days #5 tablet Home Medications: Divalproex Sodium [Depakote ER] 500 mg PO QHS 06/15/18 Levofloxacin [Levaquin 750 mg Tablet] 750 mg PO DAILY 5 Days #5 tablet 06/19/18 History of Present Illness History of Present Illness: Admitting hospitalist's H&P: JEANNA FREITAS is a 27 year old female with no travel history, history of bipolar disorder, anxiety, depression, came to the emergency room with complaints of cough and chest congestion for 1 week. Due to the patient she went to the ER 3 times last time Saturday [facility] where she was given 83 Z-He and was discharged and patient is continued to have problems deci ded to come to the emergency room here. Since yesterday she is complaining of coughing up bright colored blood. 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 She is given the history that 2 of her kids are sick prior to the car problems first. She said might have borderline pneumonia secondary to a kid who had a bronchitis. She is given the history of shortness of breath associated with chest pain and coughing. Initially she is coughing green colored sputum. Since yesterday was blood stained sputum complains of headaches no dizziness complains of nausea denies any vomiting diarrhea constipation. She never had this problem. In the emergency room sputum AFB was sent. Call was placed to Dr. Junior the scrub woman's recommendation is to not to start antibiotics until the cultures are negative. Medical consult was called for admission. CT of the chest was done PE is ruled out. But the radiologist impression is infective bronchiolitis most likely viral, possible fungal and TB etiology. Hospital Course Hospital Course: his is a 27-year-old female who initially presented with cough and hemoptysis and was admitted for viral pneumonitis vs questionable TB. Sge was initially placed on TB/airborne precautions. AFB, sputum and PPD studies were done and all came back negative. Chest CT showed right upper and right lower lobe opacities concenring for bronchiolitis. Patient was started on IV rocephin as well. She did clinically improve with Rocephin. Her blood streaked sputum did resolve. On day of discharge, she felt she was at her baseline and she ambulated well on the hallways on room air with no desaturation or SOB. Lung sounds also improve significantly and only had occasional rhonchi with resolution of significant right sided crakcles. HIV testing was also recommended but patient refused and says she silva snot have risk factor to acquire HIV. She will be discharged on 5 more days of Levaquin. Physical Exam Vital Signs: Temp Pulse Resp BP Pulse Ox 97.4 F 97 16 126/71 H 100 06/19/18 12:18 06/19/18 12:18 06/19/18 12:18 06/19/18 12:18 06/19/18 12:18 Pulse Oximeter Continuous Start: 06/15/18 19:25 Freq: RTQ4 Status: Discharge Protocol: Document 06/19/18 12:00 HCR (Rec: 06/19/18 12:02 HCR [email or web address]) Pulse Oximetry Assessment Oxygen Saturation (92-100) 94 Oxygen Flow Rate (L/min) 1 Oxygen Delivery Method Nasal Cannula Equipment Usage Equipment in Use Continuous SpO2 Machine # 11 Intake & Output 06/18/18 06/19/18 06/20/18 06:59 06:59 06:59 Intake Total 970 1650 500 Output Total 1 1 Balance 969 1649 500 Weight 216 lb 4.375 oz 217 lb 9.54 oz General appearance: PRESENT: no acute distress, well-developed, well-nourished Head exam: PRESENT: atraumatic, normocephalic Eye exam: PRESENT: conjunctiva pink, EOMI, PERRLA. ABSENT: scleral icterus Ear exam: PRESENT: normal external ear exam Mouth exam: PRESENT: moist, tongue midline Neck exam: ABSENT: carotid bruit, JVD, lymphadenopathy, thyromegaly Respiratory exam: PRESENT: rhonchi - occasiona rhonchi on the right base. ABSENT: rales, wheezes Pulses: PRESENT: normal dorsalis pedis pul GI/Abdominal exam: PRESENT: normal bowel sounds, soft. ABSENT: distended, guarding, mass, organolmegaly, rebound, tenderness Rectal exam: PRESENT: deferred Neurological exam: PRESENT: alert, awake, oriented to person, oriented to place, oriented to time, oriented to situation, CN II-XII grossly intact. ABSENT: motor sensory deficit Results Laboratory Results: 06/18/18 04:13 06/18/18 04:13 06/17/18 05:46 Sputum AFB Smear Concentration - Final 06/17/18 05:46 Sputum Acid Fast Bacilli Smear - Final 06/15/18 06/15/18 06/15/18 06:55 10:45 15:50 CK-MB (CK-2) 0.63 0.59 Troponin I < 0.012 06/15/18 21:50 CK-MB (CK-2) 0.68 Troponin I Impressions: Chest/Abdomen CTA 06/15/18 06:32 IMPRESSION: 1. Limited study. No central pulmonary embolus detected. 2. Mild adenopathy and patchy right lung infiltrates with differential as described above. Qualifiers - * PATIENT BEING DISCHARGED WITH ANY OF THE FOLLOWING DIAGNOSIS: No
== END 2018-06-19 13:38 | disposition home or self-care (01) | DRG 193 ==
LOC: ER 05:58 → EH 09:29 → 3N 13:35
PROVIDERS: ADMIT Internal Medicine; ATTEND Internal Medicine
PROC: 3E0F73Z Introduction of Anti-inflammatory into Respiratory Tract, Via Natural or Artificial Opening (ICD-10-PCS; principal; 2018-06-15)
DX: J12.9 Viral pneumonia, unspecified (principal); J96.01 Acute respiratory failure with hypoxia; R04.2 Hemoptysis; F17.210 Nicotine dependence, cigarettes, uncomplicated; F31.9 Bipolar disorder, unspecified; F41.1 Generalized anxiety disorder; Z98.51 Tubal ligation status
CPT/HCPCS: 36415; 71275; 80048; 80061; 80307; 81001; 82553; 82803; 83605; 83735; 84443; 84484; 85025; 87015; 87040; 87070; 87116; 87205; 87206; 87804; 94640; 94762; 96361; 96374; 99285; J0696; J1650; J2060; J2930; J3490; J7030; J7620; S0028

== ENCOUNTER 2019-03-11 04:02 | Emergency (ER) | payer MEDICAID | END 2019-03-11 06:52 | disposition home or self-care (01) | LOC: ER 04:02 | DX: Z53.21 Procedure and treatment not carried out due to patient leaving prior to being seen by health care provider (principal); R04.0 Epistaxis ==

== ENCOUNTER → 2019-11-10 | Outpatient (CLI) | payer MEDICAID ==
--- NOTE | 2019-11-10 15:56 | RADIOLOGY REPORT (SQ) ---
EXAM DESCRIPTION: CHEST PA/LATERAL IMAGES COMPLETED DATE/TIME: 11/10/2019 3:49 pm REASON FOR STUDY: ACUTE UPPER RESPIRATORY INFECTION, UNSPECIFIED COMPARISON: None. EXAM PARAMETERS: NUMBER OF VIEWS: two views TECHNIQUE: Digital Frontal and Lateral radiographic views of the chest acquired. RADIATION DOSE: NA LIMITATIONS: none FINDINGS: LUNGS AND PLEURA: No opacities, masses or pneumothorax. No pleural effusion. MEDIASTINUM AND HILAR STRUCTURES: No masses or contour abnormalities. HEART AND VASCULAR STRUCTURES: Heart normal size. No evidence for failure. BONES: No acute findings. HARDWARE: None in the chest. OTHER: No other significant finding. IMPRESSION: NO SIGNIFICANT RADIOGRAPHIC FINDING IN THE CHEST. TECHNICAL DOCUMENTATION: JOB ID: [id number] 2010 [employer]- All Rights Reserved Reading location - IP/workstation name: [email or web address]
== END ==
LOC: RAD 15:33
PROVIDERS: ATTEND Nurse Practitioner Family
DX: J06.9 Acute upper respiratory infection, unspecified (principal)
CPT/HCPCS: 71046